=== PATIENT | male | born 1955 | race Asian ===

== ENCOUNTER 2020-06-21 20:23 | Emergency (ER) | payer OTHER ==
[2020-06-21 20:37] VITALS: TEMP 97.4
[2020-06-21 22:26] VITALS: BP 103/69; PULSE 75
== END 2020-06-21 22:43 | disposition home or self-care (01) ==
LOC: COL.ER 20:23
DX: S06.0X0A Concussion without loss of consciousness, initial encounter (principal); S60.512A Abrasion of left hand, initial encounter; S60.511A Abrasion of right hand, initial encounter; S80.211A Abrasion, right knee, initial encounter; S90.512A Abrasion, left ankle, initial encounter; M25.551 Pain in right hip; M79.651 Pain in right thigh; R40.2412 Glasgow coma scale score 13-15, at arrival to emergency department; Z23 Encounter for immunization; V19.9XXA Pedal cyclist (driver) (passenger) injured in unspecified traffic accident, initial encounter

== ENCOUNTER → 2021-11-26 | Outpatient (CLI) | payer OTHER | LOC: COL.RAD 13:43 | DX: K44.9 Diaphragmatic hernia without obstruction or gangrene (principal); R31.9 Hematuria, unspecified | CPT/HCPCS: Q9967 ==